=== PATIENT | female | born 1960 | race Caucasian/White ===

== ENCOUNTER 2024-04-15 10:01 | Outpatient (CLI) | payer OTHER ==
[2024-04-15 10:46] LABS: #Basophils 0.03 10x3/uL (0.0-0.2); #Eosinphils 0.21 10x3/uL (0.0-0.5); #Monocytes 0.61 10x3/uL (0.0-1.1); #Neutrophils 2.37 10x3/uL (1.5-8.4); %Basophils 0.5 % (0.0-2.0); %Eosinophils 3.8 % (0.0-6.0); %Neutrophils 42.5 % (40.0-75.0); Hematocrit 36.1 % (34.9-44.5); Hemoglobin 12.4 g/dL (12.0-15.5); Mean Corpuscular HGB CONC 34.3 g/dL (32.0-36.0); Mean Corpuscular Hemoglobin 33.2 pg (27.0-33.0); Mean Corpuscular Volume 96.5 fL (81.6-98.3); Mean Platelet Volume 10.5 fL (7.4-10.4); Platelet Count 174 10x3/uL (150-450); RBC Distribution Width 13.4 % (11.5-14.5); Red Blood Cell (RBC) Count 3.74 10x6/uL (3.90-5.03); White Blood Cell (WBC) Count 5.6 10x3/uL (3.5-10.5)
[2024-04-15 11:06] LABS: Anion Gap 12 mmol/L (10-20); BUN (Urea Nitrogen) 16 mg/dL (9.8-20.1); Calc. Creatinine Clearance 0 mL/min (70-130); Calcium 10.7 mg/dL (7.8-10.44); Carbon Dioxide 27 mmol/L (23-31); Chloride 106 mmol/L (98-107); Estimated GFR 87; Glucose 93 mg/dL (80-115); Potassium 4.2 mmol/L (3.5-5.1); Sodium 141 mmol/L (136-145)
== END 2024-04-15 10:02 | disposition home or self-care (01) ==
LOC: LABBT 10:01
PROVIDERS: ATTEND Surgery
DX: Z01.818 Encounter for other preprocedural examination (principal); K62.89 Other specified diseases of anus and rectum
CPT/HCPCS: 80048; 85025; 93005; 93010

== ENCOUNTER 2024-04-22 07:25 | Day surgery (SDC) | payer OTHER ==
[2024-04-15 10:30] VITALS: BMI 29.7
[2024-04-22] MEDS ORDERED: Fentanyl 250 MCG/5 ML VIAL ONE (10:09)
[2024-04-22] MEDS ORDERED: PROPOFOL 40 ML ONE (10:09)
[2024-04-22] MEDS ORDERED: Lidocaine 2% PF 5 ML VIAL ONE (10:13)
[2024-04-22] MEDS ORDERED: Sodium Chloride 0.9% 100 ML ONE (10:16)
[2024-04-22] MEDS ORDERED: cefOXitin 2 GM VIAL ONE (10:16)
[2024-04-22] MEDS ORDERED: Dexamethasone 4 mg/ml Vial ONE (10:20)
[2024-04-22] MEDS ORDERED: Ondansetron PF 4 MG/2 ML Vial ONE (10:20)
[2024-04-22] MEDS ORDERED: Glycopyrrolate 0.2 MG/ML 5 ML SYRINGE ONE (10:30)
[2024-04-22] MEDS ORDERED: PHENYLEPHRINE-NS 100 MCG/ML 10 ML SYRINGE ONE (10:36)
[2024-04-22] MEDS ORDERED: EPINEPHrine 1 MG/ML VIAL ONE (10:43)
[2024-04-22] MEDS ORDERED: Bupivacaine 0.25% HCL 30 ML VIAL ONE (10:43)
[2024-04-22] MEDS ORDERED: SUGAMMADEX SODIUM 200 MG/2 ML VIAL ONE (10:47)
[2024-04-22] MEDS ORDERED: Ketorolac Tromethamine 30 MG (1 mL) VIAL ONE (10:49)
== END 2024-04-22 12:50 | disposition home or self-care (01) ==
LOC: SDC 07:25
PROVIDERS: ATTEND Surgery
PROC: 0DBP0ZZ Excision of Rectum, Open Approach (ICD-10-PCS; principal; 2024-04-22)
PROC: 06BY0ZC Excision of Hemorrhoidal Plexus, Open Approach (ICD-10-PCS; principal; 2024-04-22)
DX: C20 Malignant neoplasm of rectum (principal); K62.89 Other specified diseases of anus and rectum; I10 Essential (primary) hypertension; Z79.899 Other long term (current) drug therapy; Z88.5 Allergy status to narcotic agent; Z88.8 Allergy status to other drugs, medicaments and biological substances
CPT/HCPCS: 88305; 88341; 88342; J0171; J0665; J0694; J1100; J1885; J2001; J2405; J2704; J3010; J3490